=== PATIENT | female | born 1950 | race Caucasian/White ===

== ENCOUNTER 2024-12-24 08:27 | Outpatient (CLI) | payer MEDICARE, SELFPAY ==
--- NOTE | ~2024-12-24 | MR_ITS ---
EXAMINATION: MR pelvis wo con, MR sacrum wo con DATE: 12/24/2024 09:46 INDICATION: Buttock numbness TECHNIQUE: 1. Magnetic resonance imaging (MRI) of the pelvis was performed without intravenous contrast. Sequenc es included axial T1-weighted FSE, axial T2-weighted FS FSE, coronal T1-weighted FSE, coronal T2-weig hted FS FSE, sagittal T1-weighted FSE and sagittal T2-weighted FS FSE. 2. MRI of the sacrum was performed without intravenous contrast. Sequences included sagittal PD-weigh codi FS FSE, oblique axial T1-weighted FSE and T2-weighted FS FSE and oblique coronal T1-weighted FSE, T2-weighted FS FSE and T2-weighted FSE. COMPARISON: None. FINDINGS: The lumbar spine is angled towards the left. L5 is partially sacralized on the left. Disc desiccation and mild disc height loss at L4-L5. Minimal disc bulges at L3-L4 and L4-L5. Mild disc bulge with taryn ular fissure at L5-S1. There is minimal central canal stenosis at each of these levels. There is pallavi re facet osteoarthritis contributing to mild neural from stenosis bilaterally at L3-L4 through L5-S1. Bone alignment is otherwise normal. Mild osteitis pubis with mild edema-like signal change at the lef t pubic body. Mild osteoarthritis at the bilateral sacroiliac joints. Small T2 hyperintense erosion v ersus degenerative subarticular cystlike change at the sacral side of the right sacroiliac joint. Bon e marrow signal is otherwise normal throughout. No fracture or osteonecrosis. Mild bilateral hip oste oarthritis. Bladder is normal. There are 3 low signal intensity uterine fibroids. No free fluid in th e pelvis. No pathologically enlarged pelvic or inguinal lymphadenopathy. IMPRESSION: 1. 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 2. Mild bilateral hip and sacroiliac osteoarthritis with small subarticular cystlike change versus er osion at the right sacroiliac joint. 3. Fibroid uterus. Reviewed, dictated and finalized at location B. OGY PROFESSOR IMPRESSION: 1. 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 2. Mild bilateral hip and sacroiliac osteoarthritis with small subarticular cys tlike change versus erosion at the right sacroiliac joint. 3. Fibroid uterus.
== END 2024-12-24 08:28 | disposition home or self-care (01) ==
DX: R20.0 Anesthesia of skin (principal); M43.06 Spondylolysis, lumbar region; M16.0 Bilateral primary osteoarthritis of hip; D25.9 Leiomyoma of uterus, unspecified
CPT/HCPCS: 72195